=== PATIENT | female | born 1985 | race Caucasian/White ===

== ENCOUNTER 2024-03-12 14:22 | Observation (INO) ==
--- NOTE | 2024-03-12 15:00 | Emergency Department Note ---
HPI - Chest Pain General Chief Complaint: Chest Pain Stated Complaint: DOC REF Time Seen by Provider: 03/12/24 14:25 Source: patient Mode of arrival: walk-in Limitations: no limitations Related Data Allergies Allergy/AdvReac Type Severity Reaction Status Date / Time iodine Allergy Unknown Verified 03/12/24 14:39 Exam Constitutional: Vital Signs - 24 hr 03/12/24 14:28 03/12/24 14:28 03/12/24 14:58 Temperature 98.3 F Pulse Rate 93 H 87 Respiratory Rate 20 18 Blood Pressure 139/90 136/77 Pulse Oximetry 97 97 Oxygen Delivery Me thod Room Air Room Air Room Air Oxygen Flow Rate 03/12/24 15:15 03/12/24 15:18 03/12/24 15:30 Temperature Pulse Rate 89 92 H Respiratory Rate 18 20 Blood Pressure 139/66 139/66 118/70 Pulse Oximetry 97 97 Oxygen Delivery Me thod Room Air Room Air Oxygen Flow Rate 03/12/24 15:45 03/12/24 16:00 03/12/24 16:00 Temperature Pulse Rate 88 88 Respiratory Rate 20 20 Blood Pressure 125/77 137/69 Pulse Oximetry 95 95 99 Oxygen Delivery Me thod Room Air Room Air Nasal Cannula Oxygen Flow Rate 3 03/12/24 16:15 03/12/24 16:25 03/12/24 16:30 Temperature Pulse Rate 87 87 87 Respiratory Rate 20 20 20 Blood Pressure 120/72 129/81 129/81 Pulse Oximetry 98 99 99 Oxygen Delivery Me thod Nasal Cannula Nasal Cannula Nasal Cannula Oxygen Flow Rate 3 3 3 03/12/24 16:45 03/12/24 17:00 03/12/24 17:15 Temperature Pulse Rate 86 85 84 Respiratory Rate 20 20 22 Blood Pressure 105/42 101/49 105/56 Pulse Oximetry 99 99 98 Oxygen Delivery Me thod Nasal Cannula Nasal Cannula Nasal Cannula Oxygen Flow Rate 3 3 3 03/12/24 17:30 03/12/24 17:45 03/12/24 18:00 Temperature Pulse Rate 83 85 82 Respiratory Rate 20 20 18 Blood Pressure 101/38 102/50 131/68 Pulse Oximetry 99 98 99 Oxygen Delivery Me thod Nasal Cannula Nasal Cannula Nasal Cannula Oxygen Flow Rate 3 3 3 03/12/24 18:15 03/12/24 18:30 Temperature Pulse Rate 84 83 Respiratory Rate 22 22 Blood Pressure 98/68 101/60 Pulse Oximetry 98 99 Oxygen Delivery Me thod Nasal Cannula Nasal Cannula Oxygen Flow Rate 3 3 Course Vital Signs Vital signs: Vital Signs Temperature 98.3 F 03/12/24 14:28 Pulse Rate 93 H 03/12/24 14:28 Respiratory Rate 20 03/12/24 14:28 Blood Pressure 139/90 03/12/24 14:28 Pulse Oximetry 97 03/12/24 14:28 Oxygen Delivery Method Room Air 03/12/24 14:28 Temperature 98.3 F 03/12/24 14:28 Pulse Rate 83 03/12/24 18:30 Respiratory Rate 22 03/12/24 18:30 Blood Pressure 101/60 03/12/24 18:30 Pulse Oximetry 99 03/12/24 18:30 Oxygen Delivery Method Nasal Cannula 03/12/24 18:30 Oxygen Flow Rate 3 03/12/24 18:30 MDM - Chest Pain Lab Data Labs: Lab Results 03/12/24 03/12/24 03/12/24 Range/Units 14:45 16:26 18:00 WBC 10.1 H (4.3-9.3) K/uL RBC 4.7 (4.00-5.50) M/uL Hgb 12.6 (12.5-15.8) gm/dL Hct 38.1 (35.9-46.7) % MCV 81.9 (81.0-93.7) fl MCH 27.2 L (27.6-32.2) pg MCHC 33.2 (33.1-35.3) g/dl RDW 14.5 H (11.4-14.2) % Plt Count 250 (152-353) K/uL MPV 8.8 (6.9-10.8) fl Gran % 69.8 (47.8-71.3) % Lymph % (Auto) 18.4 L (20.0-43.0) % [place] % (Auto) 9.5 (3.6-9.8) % Eos % (Auto) 1.7 (0.4-2.8) % Baso % (Auto) 0.6 (0.1-0.85) Lymph # (Auto) 1.9 (1.1-3.1) [place] # (Auto) 1.0 L (1.1-3.1) Eos # (Auto) 0.2 (0.0-0.2) Baso # (Auto) 0.1 (0.0-0.1) Absolute Gran (auto) 7.0 H (2.3-6.0) D-Dimer 106 (100-600) ng/mL Sodium 133 L (136-145) mmol/L Potassium 3.8 (3.6-5.2) mmol/L Chloride 95.0 L (98-107) mmol/L Carbon Dioxide 32 (21-32) mmol/L Anion Gap 6.0 (4-14) mEq/L BUN 8 (7-18) mg/dL Creatinine 0.7 (0.6-1.3) mg/dL Estimated GFR 113.5 (>59.9) Glucose 296 H (70-110) mg/dL Calcium 8.9 (8.5-10.1) mg/dL Total Bilirubin 0.32 (0.0-1.0) mg/dL AST 14 L (15-37) U/L ALT 44 (30-65) U/L Alkaline Phosphatase 109 (50-136) U/L Total Creatine Kinase 65 51 (26-192) U/L Troponin I High Sens 6.70 5.90 (4.0-60.4) ng/L B-Natriuretic Peptide 6.9 (0-100) pg/mL Total Protein 7.6 (6.4-8.2) g/dL Albumin 3.0 L (3.4-5.0) g/dL Lipase 45.0 (16.0-77.0) U/L Urine Color Yellow (STRAW/YELL.) Urine Appearance Clear (CLEAR) Ur Specific [place] 1.025 (1.001-1.035) Urine Protein Negative (NEGATIVE) Urine Glucose (UA) 1+ (NORMAL) Urine Ketones Negative (NEGATIVE) Urine Occult Blood Negative (NEG - TRACE) Urine Nitrite Negative (NEGATIVE) Urine Bilirubin Negative (NEGATIVE) Urine Urobilinogen Normal (NORMAL) Ur Leukocyte Esterase Negative (NEGATIVE) Urine Test Negative (Negative) Fluid pH 6.5 (5 - 9) Urine Opiates Screen Neg. (NEGATIVE) Urine Methadone Screen Neg. (NEGATIVE) Barbiturate Screen Neg. (NEGATIVE) Ur Phencyclidine Scrn Neg. (NEGATIVE) Amphetamines Screen Neg. (NEGATIVE) U Benzodiazepines Scrn Neg. (NEGATIVE) Urine Cocaine Screen Neg. (NEGATIVE) U Marijuana (THC) Screen Pos. (NEGATIVE) COVID-19 (MILLY) Detected A (Not Detectd) Influenza Type A Ag Negative (Negative) Influenza Type B Ag Negative (Negative) Streptococcus Screen Negative (Negative) Discharge Plan Discharge Patient Disposition: Home, Self-Care Condition: Improved Chief Complaint: Chest Pain Clinical Impression: COVID-19, Chest pain, Acute dyspnea, Type 2 diabetes mellitus with hyperglycemia, Cannabis abuse, Dehydration Print Language: Mohawk Additional Instructions: You will need to self quarantine until you are fever free for 24 hours without Tylenol or Motrin and your symptoms are improving. Recommend Tylenol and/or Motrin as directed for fever/pain. Drink plenty of fluid over the next 24 to 48 hours. Follow-up with your primary care provider regarding your type 2 diabetes with hyperglycemia. It is also recommended that she follow-up with cardiology. Call for appointment. Thank you for choosing our emergency department for your health care! Please take your medications prescribed as directed and be sure that you follow-up with your primary care provider in the next 24 to 48 hours to ensure you are improving. All medical problems cannot be reasonably diagnosed in your ED visit today. Return for any changes or concerns, worsening of condition or if you are unable to obtain follow-up. Referrals: Julia Cotton DO [Primary Care Provider] - Time of Disposition: 18:55 [facility] Medical History (Updated 03/12/24 @ 17:36 by Joanie Oates RN) Overactive bladder Sleep apnea Diabetes O2 dependent Asthma Heart disease Surgical History (Updated 03/12/24 @ 17:37 by Joanie Oates RN) H/O section H/O heart artery stent Social History Smoking status: former smoker
[2024-03-12] MEDS: MORPHINE SULFATE 4 MG/ML CARTRIDGE IV STA (15:14)
[2024-03-12] MEDS: ASPIRIN 81 MG TAB.CHEW PO STA (15:14)
[2024-03-12] MEDS: ONDANSETRON HCL/PF 4 MG/2 ML VIAL IVP STA (15:14)
[2024-03-12 15:15] LABS: Basophils #(Absolute) Auto 0.1 (0.0-0.1); Basophils%(Percent) Auto 0.6 (0.1-0.85); Eosinophils#(Absolute)Auto 0.2 (0.0-0.2); Eosinophils%(Percent) Auto 1.7 % (0.4-2.8); Granulocytes % - Auto 69.8 % (47.8-71.3); Hematocrit 38.1 % (35.9-46.7); Mean Corpuscular Volume 81.9 fl (81.0-93.7); Monocytes %(Percent)- Auto 9.5 % (3.6-9.8); Platelet Count 250 K/uL (152-353); White Blood Count 10.1 K/uL (4.3-9.3)
[2024-03-12] MEDS: NITROGLYCERIN 0.4 MG TAB.SUBL SL ONE (15:18)
[2024-03-12 15:19] LABS: Specific Gravity Urine 1.025 (1.001-1.035); Urine Appearance CLEAR (CLEAR); Urine Blood NEGATIVE (NEG - TRACE); Urine Color YELLOW (STRAW/YELL.)
[2024-03-12 15:20] LABS: PH BODY FLUID EXCP BLOOD 6.5 (5 - 9); Urine Urobilinogen Normal (NORMAL)
[2024-03-12 15:21] LABS: Potassium 3.8 mmol/L (3.6-5.2)
[2024-03-12 15:26] LABS: Amphetamine Screen Urine NEG. (NEGATIVE); Cannabinoid Screen Urine POS. (NEGATIVE); Cocaine Screen Urine NEG. (NEGATIVE); Methadone Screen Urine NEG. (NEGATIVE); Opiate Screen Urine NEG. (NEGATIVE)
[2024-03-13] MEDS: 0.9 % SODIUM CHLORIDE 1000 ML 1,000 ML IV ONE (17:50)
[2024-03-13 17:52] LABS: Basophils #(Absolute) Auto 0.1 (0.0-0.1); Basophils%(Percent) Auto 0.6 (0.1-0.85); Eosinophils#(Absolute)Auto 0.2 (0.0-0.2); Eosinophils%(Percent) Auto 2.5 % (0.4-2.8); Granulocytes % - Auto 69.4 % (47.8-71.3); Granulocytes#(Absolute)- Auto 6.3 (2.3-6.0); Mean Corpuscular Volume 81.1 fl (81.0-93.7); Monocytes #(Absolute)- Auto 0.6 (1.1-3.1); Monocytes %(Percent)- Auto 7.1 % (3.6-9.8); Platelet Count 254 K/uL (152-353); White Blood Count 9.1 K/uL (4.3-9.3)
[2024-03-13 18:05] LABS: Potassium 3.9 mmol/L (3.6-5.2)
[2024-03-13] MEDS: AZITHROMYCIN 500 MG 500 MG in 0.9 % SODIUM CHLORIDE 250 ML IV SCH (18:51)
[2024-03-13] MEDS: KETOROLAC 30 MG/ML INJ VIAL IVP SCH (18:51)
[2024-03-13] MEDS: 0.9 % SODIUM CHLORIDE 1000 ML 1,000 ML IV SCH (18:52)
[2024-03-13 19:51] LABS: Amphetamine Screen Urine NEG. (NEGATIVE); Cannabinoid Screen Urine POS. (NEGATIVE); Cocaine Screen Urine NEG. (NEGATIVE); Methadone Screen Urine NEG. (NEGATIVE); Opiate Screen Urine NEG. (NEGATIVE)
[2024-03-13 19:52] LABS: Urine Appearance CLEAR (CLEAR); Urine Blood NEGATIVE (NEG - TRACE); Urine Color YELLOW (STRAW/YELL.); Urine Urobilinogen Normal (NORMAL)
[2024-03-13] MEDS: IPRATROPIUM/ALBUTEROL SULFATE 3 ML AMPUL.NEB INH SCH (19:53)
[2024-03-13] MEDS: BUDESONIDE 0.5 MG/2 ML AMPUL.NEB INH SCH (19:53)
[2024-03-14] MEDS: ACETAMINOPHEN 500 MG TABLET PO PRN (07:46)
[2024-03-14] MEDS: MAGNESIUM SULFATE 1 GM/2 ML 3 GM in 0.9 % SODIUM CHLORIDE 100ML 100 ML IV ONE (10:07)
[2024-03-14] MEDS: ONDANSETRON HCL/PF 4 MG/2 ML VIAL INJ PRN (10:18)
[2024-03-15 05:50] LABS: Basophils #(Absolute) Auto 0.1 (0.0-0.1); Basophils%(Percent) Auto 0.7 (0.1-0.85); Eosinophils#(Absolute)Auto 0.2 (0.0-0.2); Granulocytes % - Auto 69.6 % (47.8-71.3); Granulocytes#(Absolute)- Auto 5.4 (2.3-6.0); Hematocrit 34.7 % (35.9-46.7); Mean Corpuscular Volume 82.6 fl (81.0-93.7); Monocytes #(Absolute)- Auto 0.6 (1.1-3.1); Monocytes %(Percent)- Auto 7.2 % (3.6-9.8); Platelet Count 223 K/uL (152-353); White Blood Count 7.8 K/uL (4.3-9.3)
[2024-03-15 06:23] LABS: Potassium 3.9 mmol/L (3.6-5.2)
[2024-03-15 08:30] VITALS: RESP 20
[2024-03-15] MEDS: lisinopriL 5 MG TABLET PO SCH (09:55)
--- NOTE | 2024-03-15 11:48 | History & Physical Report ---
H&P: HPI History of Present Illness Chief complaint: Covid 19 Dyspnea failed outpatient,DM uncontrolled Narrative: 38 Year old, female was direct admitted to Med/Surg for failed out- patient treatment of Covid-19, Dyspnea, and Uncontrolled Diabetes by YESICA Maldonado as Dr. Julia Cotton attending. Patient admitted to negative pressure room for care. Nurse reports patient having chest pain on the right side, vomited once since admission, O2 SATs have remained stable. Patient reports "not feeling well" with continued nausea and chest pain on right side consistent with coughing pain. Review of Systems Status of ROS 10 or more systems reviewed and unremark able except as noted in history and below Constitutional Reports: fatigue Eyes Denies: change in vision, blurry vision or eye discomfort Ears, nose, mouth, and throat Reports: hoarseness; Denies: throat pain, neck pain, throat swelling, difficulty swallowing, mouth pain, swelling of lips/tongue, dry mouth, change in hearing or vertigo Cardiovascular Denies: chest pain, palpitations or lightheadedness Respiratory Reports: shortness of breath, cough and chest congestion; Denies: wheezing Gastrointestinal Reports: nausea and vomiting; Denies: abdominal pain or difficulty swallowing Genitourinary Reports: urinary frequency and urinary urgency; Denies: painful urination, urinary incontinence or pelvic pain Musculoskeletal Reports: limited range of motion; Denies: back pain, neck pain or extremity pain Integumentary/Breast Reports: stretch roa; Denies: rash, itching, redness, skin pain, skin tenderness, skin swelling, sores or changes in skin color Neurological Denies: headache, numbness in extremities, dizziness, slurred speech or difficulty communicating thoughts Psychiatric Denies: anxiety, mood swings, panic attacks, change in sleep pattern, hopelessness, loss of interest, irritability, paranoia or memory loss Endocrine Denies: excessive urination, excessive thirst or change in body appearance Hematologic/Lymphatic Denies: easy bruising or easy bleeding PFSH PFSH Medical History (Updated 03/23/24 @ 00:00 by ) Metabolic syndrome Hypertension Sleep apnea in adult Dyspnea Overactive bladder Sleep apnea Diabetes O2 dependent Asthma Heart disease Surgical History (Updated 03/12/24 @ 17:37 by Joanie Oates RN) H/O section H/O heart artery stent Social History Smoking status: former smoker Problems where you live: no known problems Highest level of school completed/degree received: [employer] Little interest or pleasure in doing things: several days Feeling down, depressed, or hopeless: several days Meds Home Medications and Allergies Home Medications Medication Instructions Recorded Confirmed Type albuterol sulfate 2.5 mg/3 mL 2.5 mg inhalation TID 03/14/24 03/14/24 History (0.083 %) solution for nebulization atorvastatin 10 mg tablet 10 mg PO DAILY 03/14/24 03/14/24 History diphenhydramine 25 3 tab PO BEDTIME PRN sleep 03/14/24 03/14/24 History mg-acetaminophen 500 mg tablet (Acetaminophen PM Extra Strength) diphenhydramine HCl 25 mg capsule 25 mg PO Q8H PRN allergy symptoms 03/14/24 03/14/24 History (Banophen) lisinopril 5 mg tablet 5 mg PO DAILY 03/14/24 03/14/24 History metformin 1,000 mg tablet 1,000 mg PO BID 03/14/24 03/14/24 History [id number] carb-vit K 1 tab PO DAILY 03/14/24 03/14/24 History 18 mg iron-400 mcg-500 mg tablet (One-A-Day Womens Formula) omeprazole 40 mg capsule,delayed 40 mg PO DAILY 03/14/24 03/14/24 History release tizanidine 4 mg tablet 4 mg PO Q8H PRN muscle spasticity 03/14/24 03/14/24 History azithromycin 500 mg tablet See Rx Instructions PO .COMPLEX 03/15/24 Rx (Zithromax TRI-KRISHNA) covid #3 tabs Allergies Allergy/AdvReac Type Severity Reaction Status Date / Time iodine Allergy Unknown Verified 03/12/24 14:39 Exam Exam: Patient in high fowlers position upon entering room for exam. Constitutional: abnormal general appearance (disheveled) and (chronically ill), distress noted (mild), abnormal body habitus (obese), limitations noted (physical limitations) and alert Vital Signs - 24 hr 03/13/24 17:08 03/13/24 17:50 03/13/24 19:53 Temperature 97.8 F Pulse Rate [Right Radial] 94 H 94 H Respiratory Rate 18 18 Blood Pressure [Ri ght Arm] 123/66 Pulse Oximetry 96 96 95 Oxygen Delivery Me thod Room Air Room Air Oxygen Flow Rate Fraction of Inspir ed Oxygen 03/13/24 19:53 03/13/24 20:00 03/13/24 20:00 Temperature 97.5 F L 97.5 F L Pulse Rate [Right Radial] 91 H 91 H Respiratory Rate 19 19 Blood Pressure [Ri ght Arm] 107/49 107/49 Pulse Oximetry 95 95 95 Oxygen Delivery Me thod Nasal Cannula Room Air Room Air Oxygen Flow Rate 2 Fraction of Inspir ed Oxygen 03/13/24 23:22 03/13/24 23:38 03/14/24 03:56 Temperature 97.8 F 97.4 F L Pulse Rate [Right Radial] 88 84 Respiratory Rate 21 19 Blood Pressure [Ri ght Arm] 131/47 108/71 Pulse Oximetry 95 95 94 L Oxygen Delivery Me thod Room Air Room Air Oxygen Flow Rate Fraction of Inspir ed Oxygen 03/14/24 07:45 03/14/24 07:45 03/14/24 08:00 Temperature 97.3 F L Pulse Rate [Right Radial] 72 Respiratory Rate 19 Blood Pressure [Ri ght Arm] 132/81 Pulse Oximetry 99 99 99 Oxygen Delivery Me thod Nasal Cannula Nasal Cannula Oxygen Flow Rate 2 Fraction of Inspir ed Oxygen 03/14/24 11:54 03/14/24 12:00 03/14/24 15:22 Temperature 97.6 F Pulse Rate [Right Radial] 79 Respiratory Rate 20 Blood Pressure [Ri ght Arm] 139/66 Pulse Oximetry 100 98 95 Oxygen Delivery Me thod Room Air Oxygen Flow Rate Fraction of Inspir ed Oxygen HENMT: normocephalic, head/scalp atraumatic, hearing grossly normal bilaterally, external ears normal, TMs normal bilaterally and external nose normal Eyes: PERRL, EOMs intact bilaterally, alignment normal and visual acuity normal Neck/C-Spine: visual inspection normal, trachea midline and cervical full ROM noted Lymph: no lymphadenopathy noted and no lymphedema noted Chest: inspection of chest normal and palpation of chest normal Respiratory: breath sounds unequal (Bronchi bases), abnormal respiratory effort, auscultation abnormal (bronchial breath sounds) and wheezing noted Cardiovascular: normal heart rate noted Gastrointestinal: abdomen normal to inspection, abdomen soft to palpation, nontender to palpation, nondistended and normoactive bowel sounds Genitourinary: no CVA tenderness and bladder normal to palpation Back/Pelvis: spine normal to inspection, no lumbar spine tenderness, thoracic spine ROM normal and lumbar spine ROM normal Extremities: normal to inspection, no tenderness and no deformity Neurology: supplier engineer II-XII intact, no movement abnormality noted, gait abnormality noted (wide-based) and speech normal Psychiatry: mental status grossly normal, oriented x3, thought process normal, cooperative, affect normal and memory normal Skin: skin color abnormal Reports (flushed), rash noted, wound(s) noted, skin turgor normal and nails normal Assessment and Plan Assessment and Plan (1) COVID-19: Assessment and Plan: Azithromycin 500 mg IV Q24H Code(s): U07.1 - COVID-19 (2) Uncontrolled diabetes mellitus: Assessment and Plan: Insulin Regular Sliding Scale per protocol - SUBQ PRN Qualifiers: Diabetes mellitus type: type 2 Glycemic state: with hyperglycemia Qualified Code(s): E11.65 - Type 2 diabetes mellitus with hyperglycemia (3) Asthma: Assessment and Plan: Budesonide 1 mg INH RBID Qualifiers: Asthma complication type: with acute exacerbation Asthma persistence: unspecified Asthma severity: unspecified severity Qualified Code(s): J45.901 - Unspecified asthma with (acute) exacerbation Code(s): J45.909 - Unspecified asthma, uncomplicated (4) Dyspnea: Assessment and Plan: Ipratropium/Albuterol Sulfate 3 ml INH RQ4 Qualifiers: Dyspnea type: shortness of breath Qualified Code(s): R06.02 - Shortness of breath Code(s): R06.00 - Dyspnea, unspecified (5) Nausea & vomiting: Assessment and Plan: Ondansetron HCI/Pf 8 mg INJ Q6H PRN Qualifiers: Vomiting type: unspecified Qualified Code(s): R11.2 - Nausea with vomiting, unspecified Code(s): R11.2 - Nausea with vomiting, unspecified (6) Chest wall pain: Assessment and Plan: Ketorolac 30 mg IVP Q6H Acetaminophen 1,000 mg PO Q6H PRN Code(s): R07.89 - Other chest pain (7) Sleep apnea in adult: Code(s): G47.30 - Sleep apnea, unspecified (8) Hypertension: Qualifiers: Hypertension type: primary hypertension Qualified Code(s): I10 - Essential (primary) hypertension Code(s): I10 - Essential (primary) hypertension (9) Metabolic syndrome: Code(s): E88.810 - Metabolic syndrome Plan monitor for more emesis Results Labs Labs: CBC WBC 9.1 K/uL (4.3-9.3) 03/13/24 17:45 RBC 4.7 M/uL (4.00-5.50) 03/13/24 17:45 Hgb 12.7 gm/dL (12.5-15.8) 03/13/24 17:45 Hct 38.0 % (35.9-46.7) 03/13/24 17:45 MCV 81.1 fl (81.0-93.7) 03/13/24 17:45 MCH 27.0 pg (27.6-32.2) L 03/13/24 17:45 MCHC 33.3 g/dl (33.1-35.3) 03/13/24 17:45 RDW 14.6 % (11.4-14.2) H 03/13/24 17:45 Plt Count 254 K/uL (152-353) 03/13/24 17:45 MPV 8.4 fl (6.9-10.8) 03/13/24 17:45 Gran % 69.4 % (47.8-71.3) 03/13/24 17:45 Lymph % (Auto) 20.4 % (20.0-43.0) 03/13/24 17:45 [place] % (Auto) 7.1 % (3.6-9.8) 03/13/24 17:45 Eos % (Auto) 2.5 % (0.4-2.8) 03/13/24 17:45 Baso % (Auto) 0.6 (0.1-0.85) 03/13/24 17:45 Lymph # (Auto) 1.9 (1.1-3.1) 03/13/24 17:45 [place] # (Auto) 0.6 (1.1-3.1) L 03/13/24 17:45 Eos # (Auto) 0.2 (0.0-0.2) 03/13/24 17:45 Baso # (Auto) 0.1 (0.0-0.1) 03/13/24 17:45 Absolute Gran (auto) 6.3 (2.3-6.0) H 03/13/24 17:45 BMP Sodium 133 mmol/L (136-145) L 03/13/24 17:45 Potassium 3.9 mmol/L (3.6-5.2) 03/13/24 17:45 Chloride 95.0 mmol/L (98-107) L 03/13/24 17:45 Carbon Dioxide 35 mmol/L (21-32) H 03/13/24 17:45 Anion Gap 3.0 mEq/L (4-14) L 03/13/24 17:45 BUN 6 mg/dL (7-18) L 03/13/24 17:45 Creatinine 0.6 mg/dL (0.6-1.3) 03/13/24 17:45 Estimated GFR 117.8 (>59.9) 03/13/24 17:45 Glucose 277 mg/dL (70-110) H 03/13/24 17:45 Calcium 9.4 mg/dL (8.5-10.1) 03/13/24 17:45 Phosphorus 3.8 mg/dL (2.5-4.9) 03/13/24 17:45 Magnesium 1.4 mg/dL (1.8-2.4) L 03/13/24 17:45 Total Bilirubin 0.33 mg/dL (0.0-1.0) 03/13/24 17:45 AST 11 U/L (15-37) L 03/13/24 17:45 ALT 25 U/L (30-65) L 03/13/24 17:45 Alkaline Phosphatase 111 U/L (50-136) 03/13/24 17:45 Total Protein 7.8 g/dL (6.4-8.2) 03/13/24 17:45 Albumin 3.2 g/dL (3.4-5.0) L 03/13/24 17:45 Cardiac Enzymes Troponin I High Sens 5.90 ng/L (4.0-60.4) 03/12/24 18:00 Liver Function Total Bilirubin 0.33 mg/dL (0.0-1.0) 03/13/24 17:45 AST 11 U/L (15-37) L 03/13/24 17:45 ALT 25 U/L (30-65) L 03/13/24 17:45 Alkaline Phosphatase 111 U/L (50-136) 03/13/24 17:45 Total Protein 7.8 g/dL (6.4-8.2) 03/13/24 17:45 Albumin 3.2 g/dL (3.4-5.0) L 03/13/24 17:45 Urine Urine Color Yellow (STRAW/YELL.) 03/13/24 19:15 Urine Appearance Clear (CLEAR) 03/13/24 19:15 Ur Specific [place] 1.010 (1.001-1.035) 03/13/24 19:15 Urine Protein Negative (NEGATIVE) 03/13/24 19:15 Urine Glucose (UA) Normal (NORMAL) 03/13/24 19:15 Urine Ketones Negative (NEGATIVE) 03/13/24 19:15 Urine Occult Blood Negative (NEG - TRACE) 03/13/24 19:15 Urine Nitrite Negative (NEGATIVE) 03/13/24 19:15 Urine Bilirubin Negative (NEGATIVE) 03/13/24 19:15 Urine Urobilinogen Normal (NORMAL) 03/13/24 19:15 Ur Leukocyte Esterase Negative (NEGATIVE) 03/13/24 19:15 Imaging Imaging ordered: Chest x-ray Radiologist's impression: XR CHEST 2V HISTORY: COVID 19 AND ASTHMACOVID 19 AND ASTHMA; . COMPARISON STUDY: Chest x-ray 03/12/2024 TECHNIQUE: Two views of the chest frontal and lateral projections. FINDINGS: Lungs are expanded. Heart size and pulmonary vascular pattern appear normal. CP angles are sharp. Bones are intact. IMPRESSION: No acute cardiopulmonary process seen.
[2024-03-15 12:32] VITALS: BP 135/84; TEMP 97.6
[2024-03-15 13:58] VITALS: PULSE 91
--- NOTE | 2024-03-15 15:03 | Discharge Summary ---
DS: Providers Provider Date of admission: 03/13/24 16:44 Primary care physician: Julia Cotton DO Admitting clinician: Nehal Mendez Attending physician on admission: Julia Cotton Consults: 03/15/24 09:07 Consult to Respiratory Therapy Routine Comment: Consulting Provider: Julia Cotton Physician Instructions: Reason for consultation: oxygen qualifier Attending physician on discharge: Julia Cotton Discharging clinician: Julia Cotton Anticipated date of discharge: 03/15/24 DS: Diagnosis Discharge Diagnosis (1) COVID-19: (2) Uncontrolled diabetes mellitus: Qualifiers: Diabetes mellitus type: type 2 Glycemic state: with hyperglycemia Qualified Code(s): E11.65 - Type 2 diabetes mellitus with hyperglycemia (3) Asthma: Qualifiers: Asthma complication type: with acute exacerbation Asthma persistence: unspecified Asthma severity: unspecified severity Qualified Code(s): J45.901 - Unspecified asthma with (acute) exacerbation (4) Dyspnea: Qualifiers: Dyspnea type: shortness of breath Qualified Code(s): R06.02 - Shortness of breath (5) Nausea & vomiting: Qualifiers: Vomiting type: unspecified Qualified Code(s): R11.2 - Nausea with vomiting, unspecified (6) Chest wall pain: (7) Sleep apnea in adult: (8) Hypertension: Qualifiers: Hypertension type: primary hypertension Qualified Code(s): I10 - Essential (primary) hypertension (9) Metabolic syndrome: DS: Summary Hospital Course Hospital Course: A 38 Year old, female was direct admitted to Med/Surg for failed out- patient treatment of Covid-19, Dyspnea, and Uncontrolled diabetes by YESICA Maldonado as Dr. Julia Cotton MD attending. Patient quarantined in negative pressure room for care. Nurse reported patient having chest pain on the right side, vomited once since admission, however, O2 SATs have remained stable. Patient reported "not feeling well" during exam with continued nausea and chest pain on right side consistent with cough pain. Patient receiving treatment for the following acute medical conditions as well as chronic conditions: Covid-19, Uncontrolled Diabetes Type II, Asthma, Dyspnea, Nausea & Vomiting, Chest Wall Pain, Sleep Apnea in Adult, Hypertension, and Metabolic Syndrome. Patient has responded well to treatment and protocols, reports feeling "better" during exam this a.m. Respiratory performed Walk Study for O2 qualifier, findings were as followed: "SPO2 95%, ambulated in room SPO2 was 94%, HR 101. Tolerated tx well." Discussed Pulmonary Rehabilitation with patient, pt comitt ed to participating in program, referral will be sent prior to discharge. Provider discussed need for updated Sleep Study to be performed, sited severe sleep apnea, patient agrees. Primary Care Provider to refer Sleep Study facility. Status at Discharge Overall status at discharge: patient is progressing back to baseline Time Spent with Patient Time attestation: Total time spent providing and/or coordinating discharge services: Time spent: less than 30 minutes Exam Exam: Patient in high fowlers position upon entering room for exam. Constitutional: abnormal general appearance (disheveled) and (chronically ill), abnormal body habitus (obese), limitations noted (physical limitations) and alert Vital Signs - 24 hr 03/14/24 15:22 03/14/24 16:00 03/14/24 19:46 Temperature 97.5 F L Pulse Rate Pulse Rate [Right Radial] 89 Respiratory Rate 20 Blood Pressure [Ri ght Arm] 144/77 Pulse Oximetry 95 96 100 Oxygen Delivery Me thod Room Air Oxygen Flow Rate Fraction of Inspir ed Oxygen 03/14/24 19:46 03/14/24 19:58 03/15/24 00:00 Temperature 97.9 F 98.2 F Pulse Rate Pulse Rate [Right Radial] 87 84 Respiratory Rate 23 23 Blood Pressure [Ri ght Arm] 117/68 121/74 Pulse Oximetry 100 100 Oxygen Delivery Me thod Nasal Cannula Nasal Cannula Room Air Oxygen Flow Rate 2 2 Fraction of Inspir ed Oxygen 03/15/24 03:05 03/15/24 04:00 03/15/24 07:49 Temperature 98.1 F Pulse Rate Pulse Rate [Right Radial] 89 Respiratory Rate 23 Blood Pressure [Ri ght Arm] 135/75 Pulse Oximetry 98 96 99 Oxygen Delivery Me thod Room Air Oxygen Flow Rate Fraction of Inspir ed Oxygen 03/15/24 08:00 03/15/24 12:00 03/15/24 12:45 Temperature 97.4 F L 97.6 F Pulse Rate Pulse Rate [Right Radial] 78 78 Respiratory Rate 20 20 Blood Pressure [Ri ght Arm] 125/72 135/84 Pulse Oximetry 96 98 95 Oxygen Delivery Me thod Room Air Room Air Oxygen Flow Rate Fraction of Inspir ed Oxygen 03/15/24 13:56 Temperature Pulse Rate 91 H Pulse Rate [Right Radial] Respiratory Rate Blood Pressure [Ri ght Arm] Pulse Oximetry 94 L Oxygen Delivery Me thod Oxygen Flow Rate Fraction of Inspir ed Oxygen 21 HENMT: normocephalic, head/scalp atraumatic, hearing grossly normal bilaterally, external ears normal, TMs normal bilaterally and external nose normal Eyes: PERRL, EOMs intact bilaterally, alignment normal and visual acuity normal Neck/C-Spine: visual inspection normal, trachea midline, cervical full ROM noted and supple Lymph: no lymphadenopathy noted and no lymphedema noted Chest: inspection of chest normal and palpation of chest normal Respiratory: breath sounds equal bilaterally, abnormal respiratory effort and clear to auscultation bilaterally Upper obstruction breath sounds (apnea) Cardiovascular: normal heart rate noted and regular rhythm noted Gastrointestinal: abdomen normal to inspection, abdomen soft to palpation, nontender to palpation, nondistended and normoactive bowel sounds Genitourinary: no CVA tenderness and bladder normal to palpation Back/Pelvis: spine normal to inspection, no lumbar spine tenderness, thoracic spine ROM normal and lumbar spine ROM normal Extremities: normal to inspection, no tenderness, full ROM and no deformity Neurology: recording engineer II-XII intact, no movement abnormality noted, no focal motor deficit noted, no sensory deficits noted, gait abnormality noted (wide-based), speech normal and coordination normal Psychiatry: mental status grossly normal, oriented x3, thought process normal, cooperative, affect normal and memory normal Skin: skin color normal, rash noted, wound(s) noted, skin turgor normal and nails normal DS: Data Data Completed and Pending Labs on day of discharge: Labs from last 24 hours 03/15/24 04:40 WBC 7.8 RBC 4.2 Hgb 11.3 L Hct 34.7 L MCV 82.6 MCH 26.9 L MCHC 32.6 L RDW 15.0 H Plt Count 223 MPV 8.2 Gran % 69.6 Lymph % (Auto) 20.5 [place] % (Auto) 7.2 Eos % (Auto) 2.0 Baso % (Auto) 0.7 Lymph # (Auto) 1.6 [place] # (Auto) 0.6 L Eos # (Auto) 0.2 Baso # (Auto) 0.1 Absolute Gran (auto) 5.4 Sodium 136 Potassium 3.9 Chloride 101.0 Carbon Dioxide 31 Anion Gap 4.0 BUN 6 L Creatinine 0.5 L Estimated GFR 123.0 Glucose 204 H Calcium 8.2 L Phosphorus 4.5 Magnesium 2.0 Total Bilirubin 0.31 AST 12 L ALT 23 L Alkaline Phosphatase 68 Total Protein 7.0 Albumin 2.7 L Preliminary micro results at discharge 03/13/24 17:45 Blood Culture - Preliminary Blood - Venous Draw (Peripheral) 03/13/24 17:45 Blood Culture - Preliminary Blood - Venous Draw (Peripheral) Discharge Plan Discharge Disposition: Home, Self-Care Condition: Improved Discharge Medications: New azithromycin [Zithromax TRI-KRISHNA] 500 mg tablet See Rx Instructions .ROUTE .COMPLEX Qty: 3 0RF Rx Instructions: For 500 mg dose pack: take 500 mg once daily for 3 days Continued albuterol sulfate 2.5 mg /3 mL (0.083 %) solution for nebulization 2.5 mg inhalation TID Patient Comments: USE 1 VIAL IN NEBULIZER THREE TIMES DAILY NEEDED FOR 15 DAYS atorvastatin 10 mg tablet 10 mg PO DAILY Patient Comments: TAKE 1 TABLET BY MOUTH ONCE DAILY AT BEDTIME tizanidine 4 mg tablet 4 mg PO Q8H PRN (Reason: muscle spasticity) Patient Comments: TAKE 1 TABLET BY MOUTH EVERY 8 HOURS NEEDED omeprazole 40 mg capsule,delayed release(DR/EC) 40 mg PO DAILY Patient Comments: TAKE 1 CAPSULE BY MOUTH ONCE DAILY metformin 1,000 mg tablet 1,000 mg PO BID Patient Comments: TAKE 1 TABLET BY MOUTH TWICE DAILY DIRECTED lisinopril 5 mg tablet 5 mg PO DAILY Patient Comments: TAKE 1 TABLET BY MOUTH ONCE DAILY DIRECTED One-A-Day Womens Formula 18 mg iron-400 mcg-500 mg tablet 1 tab PO DAILY diphenhydramine-acetaminophen [Acetaminophen PM Extra Str] 25-500 mg tablet 3 tab PO BEDTIME PRN (Reason: sleep) diphenhydramine HCl [Banophen] 25 mg capsule 25 mg PO Q8H PRN (Reason: allergy symptoms) Discharge Orders: Discharge Order (Routine); Ordered 03/15/24 Ordered By: Julia Cotton Activity: increase activity as tolerated Diet: advance to your usual diet and diabetic diet Interventions: Discharge Assessment Last Done: 03/15/24 13:51 MED/SURG & ICU Observation Charge Sheet Last Done: 03/15/24 06:00 Patient Instructions: Managing Diabetes During Sick Days (ED), Dyspnea (ED), How to Recover from COVID-19 at Home (ED) Activity Restrictions/Additional Instructions: You will need to self quarantine until you are fever free for 24 hours without Tylenol or Motrin and your symptoms are improving. Recommend Tylenol and/or Motrin as directed for fever/pain. Drink plenty of fluid over the next 24 to 48 hours. Follow-up with your primary care provider regarding your type 2 diabetes with hyperglycemia. It is also recommended that she follow-up with cardiology. Call for appointment. Thank you for choosing our emergency department for your health care! Please take your medications prescribed as directed and be sure that you follow-up with your primary care provider in the next 24 to 48 hours to ensure you are improving. All medical problems cannot be reasonably diagnosed in your ED visit today. Return for any changes or concerns, worsening of condition or if you are unable to obtain follow-up. Please follow-up PCP on Tuesday continue to avoid contacts Sleep study to be scheduled for patient as an outpatient walk study did not qualify for her to have oxygen at home we will also do a overnight pulse ox study Forms: Portal/Health Info Access Inst Follow-Ups: Julia Cotton DO [Primary Care Provider] - 03/20/24 8:45 am
== END 2024-03-15 15:29 | disposition home or self-care (01) ==
LOC: ED 14:22 → MS 14:22 → ED 19:35
PROVIDERS: ADMIT Family Medicine; ATTEND Family Medicine
DX: U07.1 COVID-19; Z87.891 Personal history of nicotine dependence; E88.810 Metabolic syndrome; I10 Essential (primary) hypertension; R07.89 Other chest pain; R06.02 Shortness of breath; F12.10 Cannabis abuse, uncomplicated; G47.39 Other sleep apnea; E11.65 Type 2 diabetes mellitus with hyperglycemia; E86.0 Dehydration; R11.2 Nausea with vomiting, unspecified; J45.901 Unspecified asthma with (acute) exacerbation

== ENCOUNTER 2024-07-31 17:40 | Observation (INO) ==
[2024-07-31] MEDS: 0.9 % SODIUM CHLORIDE 500 ML IV ONE (18:15)
--- NOTE | 2024-07-31 18:15 | Emergency Department Note ---
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 Patient is also had diarrhea for the last 4 days the pain is worsened since about 10 AM today. Patient denies any fever, chills, no suspicious foods and no other ill contacts that she is aware of at this time. Patient denies any bloody emesis or bloody stools. Gall bladder is present and no previous abdominal surgeries Related Data Date of last menstrual period: 06/28/24 Hx Last Menstrual Period: irregular Patient : No Patient lactating: No Home Medications Medication Instructions Recorded Confirmed albuterol sulfate 2.5 mg/3 mL 2.5 mg inhalation TID 03/14/24 03/14/24 (0.083 %) solution for nebulization atorvastatin 10 mg tablet 10 mg PO DAILY 03/14/24 03/14/24 diphenhydramine 25 3 tab PO BEDTIME PRN sleep 03/14/24 03/14/24 mg-acetaminophen 500 mg tablet (Acetaminophen PM Extra Strength) diphenhydramine HCl 25 mg capsule 25 mg PO Q8H PRN allergy symptoms 03/14/24 03/14/24 (Banophen) lisinopril 5 mg tablet 5 mg PO DAILY 03/14/24 03/14/24 metformin 1,000 mg tablet 1,000 mg PO BID 03/14/24 03/14/24 [id number]-FA-Ca carb-vit K 1 tab PO DAILY 03/14/24 03/14/24 18 mg iron-400 mcg-500 mg tablet (One-A-Day Womens Formula) omeprazole 40 mg capsule,delayed 40 mg PO DAILY 03/14/24 03/14/24 release tizanidine 4 mg tablet 4 mg PO Q8H PRN muscle spasticity 03/14/24 03/14/24 Previous Rx's Medication Instructions Recorded azithromycin 500 mg tablet See Rx Instructions PO .COMPLEX 03/15/24 (Zithromax TRI-KRISHNA) covid #3 tabs Allergies Allergy/AdvReac Type Severity Reaction Status Date / Time iodine Allergy Unknown Verified 07/31/24 17:53 Review of Systems Status of ROS 10 or more systems reviewed and unremark able except as noted in history and below Constitutional Reports: fatigue and change in sleep pattern; Denies: fever, chills or change in weight Eyes Denies: change in vision, blurry vision, light sensitivity or eye discomfort Ears, nose, mouth, and throat Reports: hoarseness; Denies: throat pain, neck pain, throat swelling, difficulty swallowing, mouth pain, swelling of lips/tongue, dry mouth, change in hearing or vertigo Cardiovascular Reports: lightheadedness and shortness of breath with exertion; Denies: chest pain or palpitations Respiratory Reports: shortness of breath and chest congestion; Denies: cough, wheezing or stridor Gastrointestinal Reports: nausea, vomiting, diarrhea, feeling full early and change in bowel habits; Denies: abdominal pain, coffee grounds in vomit, heartburn, constipation, bloating or difficulty swallowing Genitourinary Denies: painful urination, urinary frequency, urinary urgency, urinary incontinence, blood in urine, difficulty voiding, pelvic pain or painful menstruation Musculoskeletal Reports: limited range of motion (secondary to size); Denies: back pain, neck pain, extremity pain, extremity swelling or joint pain Integumentary/Breast Reports: stretch roa; Denies: rash, itching, redness, skin pain, skin tenderness, skin swelling, sores or changes in skin color Neurological Denies: headache, numbness in extremities, dizziness, slurred speech or difficulty communicating thoughts Psychiatric Denies: anxiety, mood swings, panic attacks, change in sleep pattern, hopelessness, loss of interest, irritability, paranoia or memory loss Endocrine Denies: excessive urination, excessive thirst or change in body appearance Hematologic/Lymphatic Denies: easy bruising or easy bleeding PFSH PFSH Medical History Metabolic syndrome Hypertension Sleep apnea in adult Dyspnea Overactive bladder Sleep apnea Diabetes O2 dependent Asthma Heart disease Surgical History H/O section H/O heart artery stent Social History Smoking status: never smoker Problems where you live: no known problems Highest level of school completed/degree received: [employer] Little interest or pleasure in doing things: several days Feeling down, depressed, or hopeless: several days Feel stressed/tense/nervous/anxious/difficulty sleeping: not at all Due to disability, difficulty making decisions: No Exam Exam: Patient in high fowlers position upon entering room for exam. Constitutional: abnormal general appearance (disheveled) and (chronically ill), no apparent distress, abnormal body habitus (obese), limitations noted (physical limitations) and alert Vital Signs - 24 hr 07/31/24 17:43 07/31/24 18:30 Temperature 97.4 F L Pulse Rate 97 H 86 Respiratory Rate 18 18 Blood Pressure 146/70 115/79 Pulse Oximetry 94 L 96 Oxygen Delivery Me thod Room Air Room Air Vital Signs - 24 hr 03/14/24 15:22 03/14/24 16:00 03/14/24 19:46 Temperature 97.5 F L Pulse Rate Pulse Rate [Right Radial] 89 Respiratory Rate 20 Blood Pressure [Ri ght Arm] 144/77 Pulse Oximetry 95 96 100 Oxygen Delivery Me thod Room Air Oxygen Flow Rate Fraction of Inspir ed Oxygen 03/14/24 19:46 03/14/24 19:58 03/15/24 00:00 Temperature 97.9 F 98.2 F Pulse Rate Pulse Rate [Right Radial] 87 84 Respiratory Rate 23 23 Blood Pressure [Ri ght Arm] 117/68 121/74 Pulse Oximetry 100 100 Oxygen Delivery Me thod Nasal Cannula Nasal Cannula Room Air Oxygen Flow Rate 2 2 Fraction of Inspir ed Oxygen 03/15/24 03:05 03/15/24 04:00 03/15/24 07:49 Temperature 98.1 F Pulse Rate Pulse Rate [Right Radial] 89 Respiratory Rate 23 Blood Pressure [Ri ght Arm] 135/75 Pulse Oximetry 98 96 99 Oxygen Delivery Me thod Room Air Oxygen Flow Rate Fraction of Inspir ed Oxygen 03/15/24 08:00 03/15/24 12:00 03/15/24 12:45 Temperature 97.4 F L 97.6 F Pulse Rate Pulse Rate [Right Radial] 78 78 Respiratory Rate 20 20 Blood Pressure [Ri ght Arm] 125/72 135/84 Pulse Oximetry 96 98 95 Oxygen Delivery Me thod Room Air Room Air Oxygen Flow Rate Fraction of Inspir ed Oxygen 03/15/24 13:56 Temperature Pulse Rate 91 H Pulse Rate [Right Radial] Respiratory Rate Blood Pressure [Ri ght Arm] Pulse Oximetry 94 L Oxygen Delivery Me thod Oxygen Flow Rate Fraction of Inspir ed Oxygen 21 HENMT: normocephalic, head/scalp atraumatic, hearing grossly normal bilaterally, external ears normal, TMs normal bilaterally and external nose normal snuff in mouth Eyes: PERRL, EOMs intact bilaterally, alignment normal and visual acuity normal Neck/C-Spine: trachea midline, cervical spine nontender, abnormal cervical ROM noted, supple, no meningeal signs, thyroid normal and no carotid bruits Lymph: no lymphadenopathy noted and no lymphedema noted Chest: inspection of chest normal and palpation of chest normal Respiratory: breath sounds unequal (diminished secondary to size), abnormal respiratory effort and clear to auscultation bilaterally Upper obstruction breath sounds (apnea) Cardiovascular: normal heart rate noted, regular rhythm noted, no gallop, no rub and no murmur Gastrointestinal: abdomen normal to inspection, abdomen soft to palpation, nontender to palpation, nondistended, normoactive bowel sounds and hepatosplenomegaly noted Genitourinary: no CVA tenderness and bladder normal to palpation Back/Pelvis: spine normal to inspection, no lumbar spine tenderness, thoracic spine ROM normal and lumbar spine ROM normal Extremities: normal to inspection, normal to palpation, no tenderness, full ROM and no deformity Neurology: command and control officer II-XII intact, no movement abnormality noted, no focal motor deficit noted, no sensory deficits noted, gait abnormality noted (wide-based), speech normal and coordination normal Psychiatry: mental status grossly normal, oriented x3, thought process normal, cooperative, affect normal, psychomotor activity normal and memory normal Feel stressed/tense/nervous/anxious/difficulty sleeping: not at all Due to disability, difficulty making decisions: No Skin: skin color normal, rash noted, wound(s) noted, skin turgor abnormal Reports (tenting), petechiae noted, mottling noted and nails normal Course Course Hospital Course: Patient given simethicone and GI cocktail with pain level going from a 8 down to 5 nausea persisting despite Zofran 8 mg IV for over an hour so patient given Reglan IV remained nauseated secondary to p.o. potassium to replace the potassium of 2.9 so started IV replacement for the next 4 hours. Discussed patient with Marina agree to admit her secondary to her well-known diabetes inability to eat at this time with her hyperkalemia as well as dehydration noted secondary to 4 days of nausea vomiting and diarrhea with negative stools and hemoglobin A1c of 11 and normal labs from the left heel from a visit 3 days ago and the visit today. Vital Signs Vital signs: Vital Signs Temperature 97.4 F L 07/31/24 17:43 Pulse Rate 97 H 07/31/24 17:43 Respiratory Rate 18 07/31/24 17:43 Blood Pressure 146/70 07/31/24 17:43 Pulse Oximetry 94 L 07/31/24 17:43 Oxygen Delivery Method Room Air 07/31/24 17:43 Temperature 97.4 F L 07/31/24 17:43 Pulse Rate 86 07/31/24 18:30 Respiratory Rate 18 07/31/24 18:30 Blood Pressure 115/79 07/31/24 18:30 Pulse Oximetry 96 07/31/24 18:30 Oxygen Delivery Method Room Air 07/31/24 18:30 MDM - Abdominal Pain Differential Diagnosis Differential diagnosis: Likely abdominal pain, acute appendicitis, calculus of kidney, constipation, diverticulitis, endometriosis, gastroenteritis, pancreatitis, small bowel obstruction and other (acute cholecystitis, gastroenteritis, colitis, cholelithiasis) Medical Records Attestation: I reviewed the patient's medical records. Medical records narrative: from PCP and old labs Lab Data Attestation: I reviewed the patient's lab results. Labs: Lab Results 07/31/24 07/31/24 07/31/24 Range/Units 18:00 18:15 18:25 WBC 8.1 (4.3-9.3) K/uL RBC 4.6 (4.00-5.50) M/uL Hgb 12.5 (12.5-15.8) gm/dL Hct 37.2 (35.9-46.7) % MCV 81.6 (81.0-93.7) fl MCH 27.4 L (27.6-32.2) pg MCHC 33.6 (33.1-35.3) g/dl RDW 14.9 H (11.4-14.2) % Plt Count 236 (152-353) K/uL MPV 8.0 (6.9-10.8) fl Gran % 69.7 (47.8-71.3) % Lymph % (Auto) 20.0 (20.0-43.0) % Gaston % (Auto) 8.0 (3.6-9.8) % Eos % (Auto) 1.7 (0.4-2.8) % Baso % (Auto) 0.6 (0.1-0.85) Lymph # (Auto) 1.6 (1.1-3.1) Gaston # (Auto) 0.6 L (1.1-3.1) Eos # (Auto) 0.1 (0.0-0.2) Baso # (Auto) 0.0 (0.0-0.1) Absolute Gran (auto) 5.6 (2.3-6.0) Sodium 137 (136-145) mmol/L Potassium 2.9 L (3.6-5.2) mmol/L Chloride 99.0 (98-107) mmol/L Carbon Dioxide 32 (21-32) mmol/L Anion Gap 6.0 (4-14) mEq/L BUN 3 L (7-18) mg/dL Creatinine 0.7 (0.6-1.3) mg/dL Estimated GFR 113.5 (>59.9) Glucose 177 H (70-110) mg/dL Lactic Acid 1.0 (0.27-1.43) mmol/L Calcium 8.7 (8.5-10.1) mg/dL Total Bilirubin 0.53 (0.0-1.0) mg/dL AST 29 (15-37) U/L ALT 40 (30-65) U/L Alkaline Phosphatase 70 (50-136) U/L Total Protein 7.4 (6.4-8.2) g/dL Albumin 3.3 L (3.4-5.0) g/dL Lipase 21.0 (16.0-77.0) U/L Urine Color Yellow (STRAW/YELL.) Urine Appearance Clear (CLEAR) Ur Specific Eldridge 1.010 (1.001-1.035) Urine Protein Negative (NEGATIVE) Urine Glucose (UA) Normal (NORMAL) Urine Ketones Large (NEGATIVE) Urine Occult Blood Negative (NEG - TRACE) Urine Nitrite Negative (NEGATIVE) Urine Bilirubin Negative (NEGATIVE) Urine Urobilinogen Normal (NORMAL) Ur Leukocyte Esterase Negative (NEGATIVE) Urine Test Negative (Negative) Fluid pH 6.5 (5 - 9) Imaging Data Imaging ordered: CT scan - abdomen Radiologist's impression: RUQ PAIN X 4RUQ PAIN X 4; COMPARISON: None. TECHNIQUE: Axial CT images were obtained through the abdomen and pelvis without contrast. Coronal reformatted images were included. All CT scans at this facility use dose modulation, iterative reconstruction, and/or weight based dosing when appropriate to reduce radiation dose to as low as reasonably achievable. FINDINGS: Please note that without the use of intravenous contrast, evaluation of organ parenchyma is limited. LOWER THORAX: Normal ABDOMEN: LIVER: Hepatic steatosis GALLBLADDER: Normal SPLEEN: Normal PANCREAS: Normal KIDNEYS: Normal ADRENAL GLANDS: Normal GI TRACT: Normal course and caliber LYMPH NODES: No enlarged nodes VESSELS: Normal PERITONEUM / RETROPERITONEUM: No free gas PELVIS: BLADDER: Normal GENITALS: Normal BONES: Normal IMPRESSION: No acute abnormality in the abdomen or pelvis. Moderate hepatic steatosis Core Measures AMI core measures followed: No Measure exclusions: not indicated Smoking Cessaation Time spent discussing smoking cessation with patient: 3 to 10 minutes Patient Acknowledges Need for Cessation: Yes Discharge Plan Discharge Patient Disposition: Admitted As Observation Condition: Stable Chief Complaint: Nausea/Vomiting/Diarrhea Clinical Impression: Gastroenteritis, Dehydration, Acute hypokalemia, Diabetes type 2, uncontrolled, Right upper quadrant abdominal pain, Metabolic disorder, Nausea & vomiting, Diarrhea Prescriptions: No Action albuterol sulfate 2.5 mg /3 mL (0.083 %) solution for nebulization 2.5 mg inhalation TID Patient Comments: USE 1 VIAL IN NEBULIZER THREE TIMES DAILY NEEDED FOR 15 DAYS atorvastatin 10 mg tablet 10 mg PO DAILY Patient Comments: TAKE 1 TABLET BY MOUTH ONCE DAILY AT BEDTIME tizanidine 4 mg tablet 4 mg PO Q8H PRN (Reason: muscle spasticity) Patient Comments: TAKE 1 TABLET BY MOUTH EVERY 8 HOURS NEEDED omeprazole 40 mg capsule,delayed release(DR/EC) 40 mg PO DAILY Patient Comments: TAKE 1 CAPSULE BY MOUTH ONCE DAILY metformin 1,000 mg tablet 1,000 mg PO BID Patient Comments: TAKE 1 TABLET BY MOUTH TWICE DAILY DIRECTED lisinopril 5 mg tablet 5 mg PO DAILY Patient Comments: TAKE 1 TABLET BY MOUTH ONCE DAILY DIRECTED One-A-Day Womens Formula 18 mg iron-400 mcg-500 mg tablet 1 tab PO DAILY diphenhydramine-acetaminophen [Acetaminophen PM Extra Str] 25-500 mg tablet 3 tab PO BEDTIME PRN (Reason: sleep) diphenhydramine HCl [Banophen] 25 mg capsule 25 mg PO Q8H PRN (Reason: allergy symptoms) azithromycin [Zithromax TRI-KRISHNA] 500 mg tablet See Rx Instructions .ROUTE .COMPLEX Qty: 3 0RF Rx Instructions: For 500 mg dose pack: take 500 mg once daily for 3 days Print Language: Bulgarian Referrals: Julia Ctoton DO [Primary Care Provider] - Time of Disposition: 20:11
[2024-07-31] MEDS: SIMETHICONE 80 MG TAB PO ONE (18:25)
[2024-07-31] MEDS: 0.9 % SODIUM CHLORIDE 1000 ML 1,000 ML IV SCH (18:25)
[2024-07-31] MEDS: GI COCKTAIL 30 ML SOLUTION PO ONE (18:26)
[2024-07-31] MEDS: ONDANSETRON HCL/PF 4 MG/2 ML VIAL IVP ONE (18:26)
[2024-07-31 18:41] LABS: PH BODY FLUID EXCP BLOOD 6.5 (5 - 9); Urine Appearance CLEAR (CLEAR); Urine Blood NEGATIVE (NEG - TRACE); Urine Color YELLOW (STRAW/YELL.); Urine Urobilinogen Normal (NORMAL)
[2024-07-31 19:02] LABS: Basophils%(Percent) Auto 0.6 (0.1-0.85); Eosinophils#(Absolute)Auto 0.1 (0.0-0.2); Eosinophils%(Percent) Auto 1.7 % (0.4-2.8); Granulocytes % - Auto 69.7 % (47.8-71.3); Granulocytes#(Absolute)- Auto 5.6 (2.3-6.0); Hematocrit 37.2 % (35.9-46.7); Mean Corpuscular Volume 81.6 fl (81.0-93.7); Monocytes #(Absolute)- Auto 0.6 (1.1-3.1); Platelet Count 236 K/uL (152-353); White Blood Count 8.1 K/uL (4.3-9.3)
[2024-07-31 19:10] LABS: Potassium 2.9 mmol/L (3.6-5.2)
[2024-07-31] MEDS ORDERED: POTASSIUM CHLORIDE IN WATER 10 MEQ/100 ML PIGGYBACK IV SCH (20:00)
[2024-07-31] MEDS ORDERED: METOCLOPRAMIDE HCL 5 MG/ML VIAL ONE (20:03)
[2024-07-31] MEDS ORDERED: 0.9 % SODIUM CHLORIDE 50 ML IV ONE (20:03)
[2024-07-31] MEDS: METOCLOPRAMIDE HCL 10 MG in 0.9 % SODIUM CHLORIDE 50 ML IVP ONE (20:08)
[2024-07-31] MEDS ORDERED: MORPHINE SULFATE 2 MG/ML CARTRIDGE IV PRN (20:27)
[2024-07-31] MEDS: POTASSIUM CHLORIDE IN WATER 10 MEQ/100 ML PIGGYBACK IV ONE (20:27)
[2024-07-31] MEDS: ACETAMINOPHEN 1000 MG/100 ML 1,000 MG/100 ML IV.SOLN IV PRN (20:44)
[2024-07-31] MEDS: IPRATROPIUM/ALBUTEROL SULFATE 3 ML AMPUL.NEB INH SCH (21:03)
[2024-07-31] MEDS: BUDESONIDE 0.5 MG/2 ML AMPUL.NEB INH SCH (21:03)
[2024-07-31] MEDS ORDERED: ONDANSETRON HCL/PF 4 MG/2 ML VIAL IVP PRN (21:43)
[2024-07-31] MEDS ORDERED: GI COCKTAIL 30 ML SOLUTION PO PRN (21:43)
[2024-07-31] MEDS: METOCLOPRAMIDE HCL 10 MG in 0.9 % SODIUM CHLORIDE 50 ML IVP SCH (21:54)
[2024-07-31] MEDS: PANTOPRAZOLE SODIUM 40 MG TABLET.DR PO SCH (21:55)
[2024-08-01] MEDS: 0.9 % SODIUM CHLORIDE 1000 ML 1,000 ML IV SCH (06:40)
[2024-08-01 06:47] LABS: Potassium 3.1 mmol/L (3.6-5.2)
[2024-08-01 06:57] LABS: Basophils%(Percent) Auto 0.6 (0.1-0.85); Eosinophils#(Absolute)Auto 0.2 (0.0-0.2); Eosinophils%(Percent) Auto 2.8 % (0.4-2.8); Granulocytes % - Auto 64.1 % (47.8-71.3); Granulocytes#(Absolute)- Auto 3.5 (2.3-6.0); Hematocrit 35.1 % (35.9-46.7); Monocytes #(Absolute)- Auto 0.5 (1.1-3.1); Monocytes %(Percent)- Auto 9.9 % (3.6-9.8); Platelet Count 216 K/uL (152-353); White Blood Count 5.5 K/uL (4.3-9.3)
--- NOTE | 2024-08-01 10:32 | History & Physical Report ---
H&P: HPI History of Present Illness Chief complaint: DEHYDRATION,HYPOKALMEIA,GASTROENTERITIS,RT UPPER Q Narrative: Patient is a 38-year-old female, she went into her PCP today and Tuesday with right upper quadrant pain, had emesis x 2 at home as well as 4 times in the office despite Zofran given by the primary care provider Funmi Mendez. Patient has also had diarrhea for the last 4 days, the pain has worsened since about 10 AM today. Patient denies any fever, chills, no suspicious foods and no other ill contacts that she is aware of at this time. Patient denies any bloody emesis or bloody stools. Gall bladder is present and no previous abdominal surgeries. Admitted to med/surg for further observation and treatment. Day one of hospital stay, patient has a chief complaint of pain in her right upper quadrant of abdomen. Bowel sounds are present but sluggish. Pain was not improved even after given Toradol and Morphine; started to improve as fluids were administered. Patient is having an Abdominal US this a.m and a Hyda-Scan out-patient to rule out gallbladder. At the time of admission, patient's diabetes was uncontrolled. Patient has not experienced any vomiting or diarrhea since admission. Review of Systems 2 Status of ROS 10 or more systems reviewed and unremark able except as noted in history and below Constitutional Reports: fatigue and change in sleep pattern; Denies: fever, chills or change in weight Eyes Denies: change in vision, blurry vision, light sensitivity or eye discomfort Ears, nose, mouth, and throat Reports: hoarseness; Denies: throat pain, neck pain, throat swelling, difficulty swallowing, mouth pain, swelling of lips/tongue, dry mouth, change in hearing or vertigo Cardiovascular Reports: lightheadedness and shortness of breath with exertion; Denies: chest pain or palpitations Respiratory Reports: shortness of breath and chest congestion; Denies: cough, wheezing or stridor Gastrointestinal Reports: nausea, vomiting, diarrhea, feeling full early and change in bowel habits; Denies: abdominal pain, coffee grounds in vomit, heartburn, constipation, bloating or difficulty swallowing Genitourinary Denies: painful urination, urinary frequency, urinary urgency, urinary incontinence, blood in urine, difficulty voiding, pelvic pain or painful menstruation Musculoskeletal Reports: limited range of motion (secondary to size); Denies: back pain, neck pain, extremity pain, extremity swelling or joint pain Integumentary/Breast Reports: stretch roa; Denies: rash, itching, redness, skin pain, skin tenderness, skin swelling, sores or changes in skin color Neurological Denies: headache, numbness in extremities, dizziness, vertigo, slurred speech or difficulty communicating thoughts Psychiatric Denies: anxiety, mood swings, panic attacks, change in sleep pattern, hopelessness, loss of interest, irritability, paranoia or memory loss Endocrine Reports: fatigue; Denies: excessive urination, excessive thirst or change in body appearance Hematologic/Lymphatic Denies: easy bruising or easy bleeding Allergic/Immunologic Denies: throat swelling or wheezing [facility] History (Updated 08/01/24 @ 10:27 by SANAM Montelongo) CHF (congestive heart failure) Metabolic syndrome Hypertension Sleep apnea in adult Dyspnea Overactive bladder Sleep apnea Diabetes O2 dependent Asthma Heart disease Surgical History H/O section H/O heart artery stent Social History Smoking status: never smoker Problems where you live: no known problems Highest level of school completed/degree received: high school Little interest or pleasure in doing things: several days Feeling down, depressed, or hopeless: several days Feel stressed/tense/nervous/anxious/difficulty sleeping: not at all Due to disability, difficulty making decisions: No Meds Home Medications and Allergies Home Medications Medication Instructions Recorded Confirmed Type albuterol sulfate 2.5 mg/3 mL 2.5 mg inhalation TID 03/14/24 08/01/24 History (0.083 %) solution for nebulization atorvastatin 10 mg tablet 10 mg PO DAILY 03/14/24 08/01/24 History diphenhydramine 25 3 tab PO BEDTIME PRN sleep 03/14/24 03/14/24 History mg-acetaminophen 500 mg tablet (Acetaminophen PM Extra Strength) diphenhydramine HCl 25 mg capsule 25 mg PO Q8H PRN allergy symptoms 03/14/24 03/14/24 History (Banophen) lisinopril 5 mg tablet 5 mg PO DAILY 03/14/24 08/01/24 History metformin 1,000 mg tablet 1,000 mg PO BID 03/14/24 08/01/24 History [id number] carb-vit K 1 tab PO DAILY 03/14/24 08/01/24 History 18 mg iron-400 mcg-500 mg tablet (One-A-Day Womens Formula) omeprazole 40 mg capsule,delayed 40 mg PO DAILY 03/14/24 08/01/24 History release tizanidine 4 mg tablet 4 mg PO Q8H PRN muscle spasticity 03/14/24 08/01/24 History azithromycin 500 mg tablet See Rx Instructions PO .COMPLEX 03/15/24 Rx (Zithromax TRI-KRISHNA) covid #3 tabs Allergies Allergy/AdvReac Type Severity Reaction Status Date / Time iodine Allergy Unknown Verified 07/31/24 17:53 Exam 2 Constitutional: abnormal general appearance (disheveled) and (chronically ill), no apparent distress, abnormal body habitus (obese), limitations noted (physical limitations) and alert Vital Signs - 24 hr 07/31/24 17:43 07/31/24 18:30 07/31/24 19:00 Temperature 97.4 F L Pulse Rate 97 H 86 62 Pulse Rate [Left R adial] Respiratory Rate 18 18 18 Blood Pressure 146/70 115/79 136/93 Blood Pressure [Le ft Arm] Pulse Oximetry 94 L 96 97 Oxygen Delivery Me thod Room Air Room Air Room Air Oxygen Flow Rate Fraction of Inspir ed Oxygen 07/31/24 19:30 07/31/24 20:00 07/31/24 21:03 Temperature 99.0 F Pulse Rate 72 67 Pulse Rate [Left R adial] Respiratory Rate 18 18 Blood Pressure 134/90 125/74 Blood Pressure [Le ft Arm] Pulse Oximetry 97 96 93 L Oxygen Delivery Me thod Room Air Room Air Oxygen Flow Rate Fraction of Inspir ed Oxygen 07/31/24 21:06 07/31/24 21:06 07/31/24 21:13 Temperature 97.8 F Pulse Rate Pulse Rate [Left R adial] 86 Respiratory Rate 24 Blood Pressure Blood Pressure [Le ft Arm] 133/68 Pulse Oximetry 97 94 L Oxygen Delivery Me thod Nasal Cannula Nasal Cannula Nasal Cannula Oxygen Flow Rate 4 4 4 Fraction of Inspir ed Oxygen 36 07/31/24 21:35 08/01/24 00:00 08/01/24 02:43 Temperature 97.6 F Pulse Rate 74 Pulse Rate [Left R adial] 72 Respiratory Rate 16 24 Blood Pressure 113/68 Blood Pressure [Le ft Arm] 114/61 Pulse Oximetry 97 93 L 90 L Oxygen Delivery Me thod Nasal Cannula Oxygen Flow Rate Fraction of Inspir ed Oxygen 08/01/24 03:40 08/01/24 07:55 08/01/24 08:03 Temperature 97.6 F 97.4 F L Pulse Rate Pulse Rate [Left R adial] 65 89 Respiratory Rate 24 19 Blood Pressure Blood Pressure [Le ft Arm] 143/68 128/70 Pulse Oximetry 98 92 L 99 Oxygen Delivery Me thod Nasal Cannula Nasal Cannula Oxygen Flow Rate 3 Fraction of Inspir ed Oxygen 08/01/24 08:03 Temperature Pulse Rate Pulse Rate [Left R adial] Respiratory Rate Blood Pressure Blood Pressure [Le ft Arm] Pulse Oximetry 99 Oxygen Delivery Me thod Nasal Cannula Oxygen Flow Rate 2 Fraction of Inspir ed Oxygen 28 HENMT: normocephalic, head/scalp atraumatic, hearing grossly normal bilaterally, external ears normal, TMs normal bilaterally and external nose normal Eyes: PERRL, EOMs intact bilaterally, alignment normal and visual acuity normal Neck/C-Spine: trachea midline, cervical spine nontender, abnormal cervical ROM noted, supple, no meningeal signs, thyroid normal and no carotid bruits Lymph: no lymphadenopathy noted and no lymphedema noted Chest: inspection of chest normal and palpation of chest normal Respiratory: breath sounds unequal (diminished secondary to size), abnormal respiratory effort and clear to auscultation bilaterally Upper obstruction breath sounds (apnea) Cardiovascular: normal heart rate noted, regular rhythm noted, no gallop, no rub and no murmur Gastrointestinal: abdomen normal to inspection, abdomen soft to palpation, nontender to palpation, nondistended, abnormal bowel sounds noted (hypoactive bowel sounds) and hepatosplenomegaly noted Genitourinary: no CVA tenderness and bladder normal to palpation Back/Pelvis: spine normal to inspection, no lumbar spine tenderness, thoracic spine ROM normal and lumbar spine ROM normal Extremities: normal to inspection, normal to palpation, no tenderness, full ROM and no deformity Neurology: casino controller II-XII intact, no movement abnormality noted, no focal motor deficit noted, no sensory deficits noted, gait abnormality noted (wide-based), speech normal and coordination normal Psychiatry: mental status grossly normal, oriented x3, thought process normal, cooperative, affect normal, psychomotor activity normal and memory normal Skin: skin color normal, rash noted, wound(s) noted, skin turgor abnormal Reports (tenting), petechiae noted, mottling noted and nails normal Image: Body (4 view):  1. RUQ Pain Assessment and Plan Assessment and Plan (1) Abdominal pain: Qualifiers: Abdominal location: right upper quadrant Qualified Code(s): R10.11 - Right upper quadrant pain Code(s): R10.9 - Unspecified abdominal pain (2) Hypertension: Qualifiers: Hypertension type: primary hypertension Qualified Code(s): I10 - Essential (primary) hypertension Code(s): I10 - Essential (primary) hypertension (3) Uncontrolled diabetes mellitus: Qualifiers: Diabetes mellitus type: type 2 Glycemic state: with hyperglycemia Q ualified Code(s): E11.65 - Type 2 diabetes mellitus with hyperglycemia (4) Asthma: Qualifiers: Asthma severity: unspecified severity Asthma persistence: unspecified Asthma complication type: with acute exacerbation Qualified Code(s): J45.901 - Unspecified asthma with (acute) exacerbation Code(s): J45.909 - Unspecified asthma, uncomplicated (5) Sleep apnea in adult: Code(s): G47.30 - Sleep apnea, unspecified (6) Metabolic syndrome: Code(s): E88.810 - Metabolic syndrome (7) Hepatomegaly: Code(s): R16.0 - Hepatomegaly, not elsewhere classified Plan Sodium Chloride 1,000 mls @ 125 mls/hr IV CONT Potassium Chloride 10 meq in 100 mls/hr IV ONCE Albuterol Sulfate 3 ml INH Q6H Budesonide 1 mg INH Q12H Pantoprazole Sodium 40 mg PO Q12H Metoclopramide Hcl 10 mg in Sodium Chloride 52 mls @ 200 mls/hr IVP Q8H Atorvastatin Calcium 10 mg PO DAILY Lisinopril 5 mg PO DAILY Acetaminophen 1,000 mg in 100 mls @ 400 mls/hr IV Q6H PRN Morphine Sulfate 1 mg IV Q2H PRN Ondansetron Hcl 8 mg IVP Q6H PRN GI Cocktail 30 ml PO Q2H PRN Results Labs Labs: CBC WBC 5.5 K/uL (4.3-9.3) 08/01/24 06:25 RBC 4.2 M/uL (4.00-5.50) 08/01/24 06:25 Hgb 11.7 gm/dL (12.5-15.8) L 08/01/24 06:25 Hct 35.1 % (35.9-46.7) L 08/01/24 06:25 MCV 83.0 fl (81.0-93.7) 08/01/24 06:25 MCH 27.6 pg (27.6-32.2) 08/01/24 06: MCHC 33.3 g/dl (33.1-35.3) 08/01/24 06: RDW 15.0 % (11.4-14.2) H 08/01/24 06:25 Plt Count 216 K/uL (152-353) 08/01/24 06:25 MPV 7.9 fl (6.9-10.8) 08/01/24 06: Gran % 64.1 % (47.8-71.3) 08/01/24 06:25 Lymph % (Auto) 22.6 % (20.0-43.0) 08/01/24 06:25 [place] % (Auto) 9.9 % (3.6-9.8) H 08/01/24 06:25 Eos % (Auto) 2.8 % (0.4-2.8) 08/01/24 06:25 Baso % (Auto) 0.6 (0.1-0.85) 08/01/24 06:25 Lymph # (Auto) 1.2 (1.1-3.1) 08/01/24:25 [place] # (Auto) 0.5 (1.1-3.1) L 08/01/24 06:25 Eos # (Auto) 0.2 (0.0-0.2) 08/01/24:25 Baso # (Auto) 0.0 (0.0-0.1) 08/01/24 06:25 Absolute Gran (auto) 3.5 (2.3-6.0) 08/01/24 06:25 BMP Sodium 138 mmol/L (136-145) 08/01/24 06:25 Potassium 3.1 mmol/L (3.6-5.2) L 01/15/25 06:25 Chloride 100.0 mmol/L (98-107) 08/01/24 06:25 Carbon Dioxide 34 mmol/L (21-32) H 08/01/24 06:25 Anion Gap 4.0 mEq/L (4-14) 08/01/24 06:25 BUN 4 mg/dL (7-18) L 08/01/24 06:25 Creatinine 0.7 mg/dL (0.6-1.3) 08/01/24 06:25 Estimated GFR 113.5 (>59.9) 08/01/24 06:25 Glucose 207 mg/dL (70-110) H 08/01/24 06:25 Calcium 8.2 mg/dL (8.5-10.1) L 08/01/24 06:25 Phosphorus 4.1 mg/dL (2.5-4.9) 08/01/24 06:25 Magnesium 1.9 mg/dL (1.8-2.4) 08/01/24 06:25 Total Bilirubin 0.52 mg/dL (0.0-1.0) 08/01/24 06:25 AST 20 U/L (15-37) 08/01/24 06:25 ALT 33 U/L (30-65) 08/01/24 06:25 Alkaline Phosphatase 64 U/L (50-136) 08/01/24 06:25 Total Protein 6.9 g/dL (6.4-8.2) 08/01/24 06:25 Albumin 3.0 g/dL (3.4-5.0) L 08/01/24 06:25 Liver Function Total Bilirubin 0.52 mg/dL (0.0-1.0) 08/01/24 06:25 AST 20 U/L (15-37) 08/01/24 06:25 ALT 33 U/L (30-65) 08/01/24 06:25 Alkaline Phosphatase 64 U/L (50-136) 08/01/24 06:25 Total Protein 6.9 g/dL (6.4-8.2) 08/01/24 06:25 Albumin 3.0 g/dL (3.4-5.0) L 08/01/24 06:25 Urine Urine Color Yellow (STRAW/YELL.) 07/31/24 18:15 Urine Appearance Clear (CLEAR) 07/31/24 18:15 Ur Specific [place] 1.010 (1.001-1.035) 07/31/24 18:15 Urine Protein Negative (NEGATIVE) 07/31/24 18:15 Urine Glucose (UA) Normal (NORMAL) 07/31/24 18:15 Urine Ketones Large (NEGATIVE) 07/31/24 18:15 Urine Occult Blood Negative (NEG - TRACE) 07/31/24 18:15 Urine Nitrite Negative (NEGATIVE) 07/31/24 18:15 Urine Bilirubin Negative (NEGATIVE) 07/31/24 18:15 Urine Urobilinogen Normal (NORMAL) 07/31/24 18:15 Ur Leukocyte Esterase Negative (NEGATIVE) 07/31/24 18:15 Imaging Imaging ordered: CT scan - abdomen and other (Gallbladder US) Radiologist's impression: CT ABDOMEN AND PELVIS WITHOUT CONTRAST Date of Service: 07/31/24 HISTORY: RUQ PAIN X 4RUQ PAIN X 4; COMPARISON: None. TECHNIQUE: Axial CT images were obtained through the abdomen and pelvis without contrast. Coronal reformatted images were included. All CT scans at this facility use dose modulation, iterative reconstruction, and/or weight based dosing when appropriate to reduce radiation dose to as low as reasonably achievable. FINDINGS: Please note that without the use of intravenous contrast, evaluation of organ parenchyma is limited. LOWER THORAX: Normal ABDOMEN: LIVER: Hepatic steatosis GALLBLADDER: Normal SPLEEN: Normal PANCREAS: Normal KIDNEYS: Normal ADRENAL GLANDS: Normal GI TRACT: Normal course and caliber LYMPH NODES: No enlarged nodes VESSELS: Normal PERITONEUM / RETROPERITONEUM: No free gas PELVIS: BLADDER: Normal GENITALS: Normal BONES: Normal IMPRESSION: No acute abnormality in the abdomen or pelvis. Moderate hepatic steatosis US GALLBLADDER Date of Service: 08/01/24 HISTORY: RUQ PAIN, ABNML LABS; COMPARISON: Abdominopelvic CT July 31, 2024 TECHNIQUE: Multiple walter scale and color flow Doppler images of the abdomen were obtained. FINDINGS: The liver is moderately enlarged with diffuse fatty infiltration. No intraparenchymal mass or intrahepatic biliary ductal dilatation can be identified. The gallbladder is unremarkable in its appearance. The common bile duct is normal measuring 0.5cm. The right kidney is normal in echotexture and size. The right kidney measures 11.4cm. No mass, hydronephrosis, or stone can be identified. The visualized portions of the pancreas is normal in their echotexture and size. Inferior vena cava is normal. IMPRESSION: Hepatomegaly and steatosis.
[2024-08-01] MEDS: lisinopriL 5 MG TABLET PO SCH (11:06)
[2024-08-02 07:55] VITALS: RESP 19
[2024-08-02] MEDS: ATORVASTATIN CALCIUM 10 MG TABLET PO SCH (09:50)
[2024-08-02] MEDS: LOSARTAN POTASSIUM 50 MG TABLET PO SCH (10:13)
[2024-08-02 12:01] VITALS: BP 164/89; PULSE 74; TEMP 98.2
--- NOTE | 2024-08-02 13:16 | Discharge Summary ---
DS: Providers Provider Date of admission: 07/31/24 20:22 Primary care physician: Julia Cotton DO Admitting clinician: Julia Cotton Attending physician on admission: Julia Cotton Attending physician on discharge: Julia Cotton Discharging clinician: Julia Ctoton Anticipated date of discharge: 08/02/24 DS: Diagnosis Discharge Diagnosis (1) Abdominal pain: Qualifiers: Abdominal location: right upper quadrant Qualified Code(s): R10.11 - Right upper quadrant pain (2) Hypertension: Qualifiers: Hypertension type: primary hypertension Qualified Code(s): I10 - Essential (primary) hypertension (3) Uncontrolled diabetes mellitus: Qualifiers: Diabetes mellitus type: type 2 Glycemic state: with hyperglycemia Qualified Code(s): E11.65 - Type 2 diabetes mellitus with hyperglycemia (4) Asthma: Qualifiers: Asthma severity: unspecified severity Asthma persistence: unspecified Asthma complication type: with acute exacerbation Qualified Code(s): J45.901 - Unspecified asthma with (acute) exacerbation (5) Sleep apnea in adult: (6) Metabolic syndrome: (7) Hepatomegaly: Plan Discharge home for self care DS: Summary Hospital Course Hospital Course: Patient is a 38-year-old female, she went into her PCP today and Tuesday with right upper quadrant pain, had emesis x 2 at home as well as 4 times in the office despite Zofran given by the primary care provider Funmi Mendez. Patient has also had diarrhea for the last 4 days, the pain has worsened since about 10 AM today. Patient denies any fever, chills, no suspicious foods and no other ill contacts that she is aware of at this time. Patient denies any bloody emesis or bloody stools. Gall bladder is present and no previous abdominal surgeries. Admitted to med/surg for further observation and treatment. Day one of hospital stay, patient has a chief complaint of pain in her right upper quadrant of abdomen. Bowel sounds are present but sluggish. Pain was not improved even after given Toradol and Morphine; started to improve as fluids were administered. Patient is having an Abdominal US this a.m and a Hyda-Scan out-patient to rule out gallbladder. At the time of admission, patient's diabetes was uncontrolled. Patient has not experienced any vomiting or diarrhea since admission. Day two of hospital stay, patient reports vomiting once through the night, however, she was able to tolerate breakfast well. Patient has had diarrhea once in the last twenty-four hours. She is ready to discharge home for self care at this time. Provider is ordering a Hyda-scan to be done out-patient, Pulmonary Rehabilitation has been requested to restart once discharged (Pulmonary will c all pt with appt), Sleep Study is recommended and to be done through PCP. Status at Discharge Functional status at discharge: independent ambulation Overall status at discharge: patient is back to baseline Time Spent with Patient Time attestation: Total time spent providing and/or coordinating discharge services: Time spent: greater than 30 minutes Exam Exam: Patient in high ulloa's position during exam. Constitutional: abnormal general appearance (disheveled) and (chronically ill), no apparent distress, abnormal body habitus (obese), limitations noted (physical limitations) and alert Vital Signs - 24 hr 08/01/24 16:00 08/01/24 19:36 08/01/24 20:04 Temperature 98.7 F 97.7 F Pulse Rate [Left R adial] 78 80 Respiratory Rate 20 25 H Blood Pressure [Le ft Arm] 150/82 131/77 Pulse Oximetry 96 94 L 98 Oxygen Delivery Me thod Room Air Nasal Cannula Oxygen Flow Rate Fraction of Inspir ed Oxygen 08/01/24 20:04 08/01/24 23:46 08/02/24 02:35 Temperature 98.3 F Pulse Rate [Left R adial] 75 Respiratory Rate 22 Blood Pressure [Le ft Arm] 137/79 Pulse Oximetry 98 97 97 Oxygen Delivery Me thod Nasal Cannula Room Air Oxygen Flow Rate 5 Fraction of Inspir ed Oxygen 40 08/02/24 03:34 08/02/24 07:54 08/02/24 08:52 Temperature 97.6 F 97.8 F Pulse Rate [Left R adial] 71 76 Respiratory Rate 23 19 Blood Pressure [Le ft Arm] 133/79 134/72 Pulse Oximetry 97 95 94 L Oxygen Delivery Me thod Room Air Nasal Cannula Oxygen Flow Rate 2 Fraction of Inspir ed Oxygen 08/02/24 08:52 08/02/24 12:00 Temperature 98.2 F Pulse Rate [Left R adial] 74 Respiratory Rate 19 Blood Pressure [Le ft Arm] 164/89 Pulse Oximetry 94 L 97 Oxygen Delivery Me thod Room Air Room Air Oxygen Flow Rate Fraction of Inspir ed Oxygen HENMT: normocephalic, head/scalp atraumatic, hearing grossly normal bilaterally, external ears normal, TMs normal bilaterally and external nose normal Eyes: PERRL, EOMs intact bilaterally, alignment normal and visual acuity normal Neck/C-Spine: trachea midline, cervical spine nontender, abnormal cervical ROM noted, supple, no meningeal signs, thyroid normal and no carotid bruits Lymph: no lymphadenopathy noted and no lymphedema noted Chest: inspection of chest normal and palpation of chest normal Respiratory: breath sounds unequal (diminished secondary to size), abnormal respiratory effort and clear to auscultation bilaterally Upper obstruction breath sounds (apnea) Cardiovascular: normal heart rate noted, regular rhythm noted, no gallop, no rub and no murmur Gastrointestinal: abdomen normal to inspection, abdomen soft to palpation, nontender to palpation, nondistended, normoactive bowel sounds and hepatosplenomegaly noted Genitourinary: no CVA tenderness and bladder normal to palpation Back/Pelvis: spine normal to inspection, no lumbar spine tenderness, thoracic spine ROM normal and lumbar spine ROM normal Extremities: normal to inspection, normal to palpation, no tenderness, full ROM and no deformity Neurology: auto parts clerk II-XII intact, no movement abnormality noted, no focal motor deficit noted, no sensory deficits noted, gait abnormality noted (wide-based), speech normal and coordination normal Psychiatry: mental status grossly normal, oriented x3, thought process normal, cooperative, affect normal, psychomotor activity normal and memory normal Skin: skin color normal, rash noted, wound(s) noted, skin turgor abnormal Reports (tenting), petechiae noted, mottling noted and nails normal DS: Data Data Completed and Pending Labs on day of discharge: Preliminary micro results at discharge 07/31/24 18:40 Blood Culture - Preliminary Blood - Venous Draw (Peripheral) 07/31/24 18:25 Blood Culture - Preliminary Blood - Venous Draw (Peripheral) Imaging Gall Bladder US: Radiologist's impression: US GALLBLADDER Date of Service: 08/01/24 HISTORY: RUQ PAIN, ABNML LABSRUQ PAIN, ABNML LABS; COMPARISON: Abdominopelvic CT July 31, 2024 TECHNIQUE: Multiple walter scale and color flow Doppler images of the abdomen were obtained. FINDINGS: The liver is moderately enlarged with diffuse fatty infiltration. No intraparenchymal mass or intrahepatic biliary ductal dilatation can be identified. The gallbladder is unremarkable in its appearance. The common bile duct is normal measuring 0.5cm. The right kidney is normal in echotexture and size. The right kidney measures 11.4cm. No mass, hydronephrosis, or stone can be identified. The visualized portions of the pancreas is normal in their echotexture and size. Inferior vena cava is normal. IMPRESSION: Hepatomegaly and steatosis. CT scan - abdomen: Radiologist's impression: CT ABDOMEN AND PELVIS WITHOUT CONTRAST Date of Service: 07/31/24 HISTORY: RUQ PAIN X 4RUQ PAIN X 4; COMPARISON: None. TECHNIQUE: Axial CT images were obtained through the abdomen and pelvis without contrast. Coronal reformatted images were included. All CT scans at this facility use dose modulation, iterative reconstruction, and/or weight based dosing when appropriate to reduce radiation dose to as low as reasonably achievable. FINDINGS: Please note that without the use of intravenous contrast, evaluation of organ parenchyma is limited. LOWER THORAX: Normal ABDOMEN: LIVER: Hepatic steatosis GALLBLADDER: Normal SPLEEN: Normal PANCREAS: Normal KIDNEYS: Normal ADRENAL GLANDS: Normal GI TRACT: Normal course and caliber LYMPH NODES: No enlarged nodes VESSELS: Normal PERITONEUM / RETROPERITONEUM: No free gas PELVIS: BLADDER: Normal GENITALS: Normal BONES: Normal IMPRESSION: No acute abnormality in the abdomen or pelvis. Moderate hepatic steatosis Discharge Plan Discharge Disposition: Home, Self-Care Condition: Improved Discharge Medications: New metoclopramide HCl [Reglan] 10 mg tablet 10 mg PO Q8H Qty: 90 0RF Continued albuterol sulfate 2.5 mg /3 mL (0.083 %) solution for nebulization 2.5 mg inhalation TID Patient Comments: USE 1 VIAL IN NEBULIZER THREE TIMES DAILY NEEDED FOR 15 DAYS atorvastatin 10 mg tablet 10 mg PO DAILY Patient Comments: TAKE 1 TABLET BY MOUTH ONCE DAILY AT BEDTIME tizanidine 4 mg tablet 4 mg PO Q8H PRN (Reason: muscle spasticity) Patient Comments: TAKE 1 TABLET BY MOUTH EVERY 8 HOURS NEEDED omeprazole 40 mg capsule,delayed release(DR/EC) 40 mg PO DAILY Patient Comments: TAKE 1 CAPSULE BY MOUTH ONCE DAILY metformin 1,000 mg tablet 1,000 mg PO BID Patient Comments: TAKE 1 TABLET BY MOUTH TWICE DAILY DIRECTED lisinopril 5 mg tablet 5 mg PO DAILY Patient Comments: TAKE 1 TABLET BY MOUTH ONCE DAILY DIRECTED One-A-Day Womens Formula 18 mg iron-400 mcg-500 mg tablet 1 tab PO DAILY diphenhydramine-acetaminophen [Acetaminophen PM Extra Str] 25-500 mg tablet 3 tab PO BEDTIME PRN (Reason: sleep) diphenhydramine HCl [Banophen] 25 mg capsule 25 mg PO Q8H PRN (Reason: allergy symptoms) azithromycin [Zithromax TRI-KRISHNA] 500 mg tablet See Rx Instructions .ROUTE .COMPLEX Qty: 3 0RF Rx Instructions: For 500 mg dose pack: take 500 mg once daily for 3 days amoxicillin 875 mg tablet 875 mg PO BID Patient Comments: LAST FILLED 07-30-24 (DME) Dexcom G7 Sensor Device See Rx Instructions .ROUTE Rx Instructions: As directed losartan 50 mg tablet 50 mg PO DAILY Discharge Orders: Discharge Order (Routine); Ordered 08/02/24 Ordered By: Julia Cotton Activity: increase activity as tolerated Diet: diabetic diet Diet Detail: small frequent meals increase water and zero calorie electrolyte drinks for the patient Interventions: MED/SURG & ICU Observation Charge Sheet Last Done: 08/02/24 06:02 Activity Restrictions/Additional Instructions: patient needs to continue to work on weight loss and increasing activity and avoid dehydration as stated above If diarrhea returns then may need GI medicine follow up as her PCP agrees and consider repeating studies follow up PCP 1 week and prn sleep study set up as an out patient jose carlos as patient needs oxygen and CPAP machine at home Forms: Portal/Health Info Access Inst Follow-Ups: Julia Cotton DO [Primary Care Provider] - 08/08/24 3:30 pm
== END 2024-08-02 13:33 | disposition home or self-care (01) ==
LOC: ED 17:40 → MS 17:40
PROVIDERS: ADMIT Family Medicine; ATTEND Family Medicine